=== PATIENT | female | born 1980 | race African-American/Black ===

== ENCOUNTER 2021-02-13 23:33 | Emergency (ER) | payer BC ==
[~2021-02-13] VITALS: Ht 172.7 cm; Wt 97.5 kg
[2021-02-13] MEDS ORDERED: TOPROL XL100 MG PO (23:51)
[2021-02-13] MEDS ORDERED: NORVASC10 MG PO (23:51)
[2021-02-13] MEDS ORDERED: LEXAPRO 10 MG T10 M1 PO (23:51)
[2021-02-13] MEDS ORDERED: CRESTOR10 MG PO (23:51)
[2021-02-14 00:42] LABS: ABSOLUTE BASOPHILS 0.1 thou/uL (0.0-0.2); ABSOLUTE EOSINOPHILS 0.1 thou/uL (0.0-0.7); ABSOLUTE LYMPHOCYTES 1.7 thou/uL (0.8-5.3); ABSOLUTE MONOCYTES 0.5 thou/uL (0.0-1.2); ABSOLUTE NEUTROPHILS 3.3 thou/uL (1.6-8.1); BASOPHILS 1.1 %; EOSINOPHILS 1.2 %; HEMOGLOBIN 12.2 gm/dL (12.0-15.0); LYMPHOCYTES 30.9 %; MCHC 32.9 g/dL (28.0-37.0); MCV 85.1 fL (80.0-100.0); MPV 9.7 fl. (7.2-11.1); NUCLEATED RBCS 0 /100WBC; PLATELET COUNT* 224 thou/uL (150-400); POLYS 57.8 %; RBC 4.35 mil/uL (4.20-5.00); RDW-CV 13.3 % (10.5-14.5); WBC 5.7 thou/uL (4.0-11.0)
[2021-02-14 00:48] LABS: CALCIUM 8.9 mg/dL (8.5-10.1); CREATININE 0.8 mg/dL (0.6-1.3)
[2021-02-14 00:53] LABS: ALBUMIN 3.6 g/dL (3.4-5.0); TOTAL BILIRUBIN 0.2 mg/dL (<0.1-1.0)
[2021-02-14 00:57] LABS: POTASSIUM 2.8 mmol/L (3.5-5.1)
[2021-02-14 01:58] VITALS: BP 119/75
--- NOTE | 2021-02-14 09:01 | EKG ---
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
--- NOTE | 2021-02-14 09:01 | EKG ---
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
== END 2021-02-14 01:59 | disposition home or self-care (01) ==
LOC: M.ERS 23:33
PROVIDERS: Personal Emergency Response Attendant
DX: R00.2 Palpitations (principal); E87.6 Hypokalemia; I10 Essential (primary) hypertension; E78.5 Hyperlipidemia, unspecified; F32.9 Major depressive disorder, single episode, unspecified; Z79.899 Other long term (current) drug therapy